=== PATIENT | male | born 2000 | race Caucasian/White ===

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

== ENCOUNTER 2018-10-05 20:25 | Emergency (ER) | payer OTHER ==
[~2018-10-05] VITALS: Ht 188 cm; Wt 136.0 kg
[~2018-10-05 20:25] MED LIST: ALBU8.5H8 INH; AMOX500C2 PO; AZIT250T PO; IBUP-1542 PO; IBUP-1561 PO; INHA-3 MC; OFLO5DRO7 RIGHT EAR
[2018-10-05 21:15] VITALS: Ht 188 cm; Wt 136.0 kg
[2018-10-06] MEDS ORDERED: LORAZEPAM 1 MG TAB PO ONE (01:00)
[2018-10-06 01:42] VITALS: BP 132/83; PULSE 88; RESP 17
--- NOTE | 2018-10-06 01:43 | ERD ---
ER Documentation Chief Complaint Chief Complaint anxiety w/ CP/numbness to left arm since 3PM HPI This is a 18-year-old male with a history of anxiety presents ED with complaints of anxiety attack. Patient states that as he was sitting at home earlier today he started to experience left-sided chest pain and some tingling in the fingertips. 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 Patient has had trouble finding a job. Patient states that the chest pain episode lasted for short period of time, roughly 20 minutes -and he has been feeling anxious off and on ever since. Patient states that he was able to calm himself down and the chest pain subsided. Patient denies any shortness breath, trouble breathing, cough, congestion, runny nose, fever, chills and other symptoms. No pleuritic chest pain. Patient denies PE risk factors inc luding recent surgery/immobilization, smoking, prior hx of DVT, coagulopathy, hx of cancer, exogenous estrogen use, one sided lower extremity swelling, and lower extremity pain. Patient denies cardiac risk factors including: hypertension, diabetes mellitus, hypercholesterolemia, physical inactivity, smoking, hx of CAD, and prior stress/cath. ROS All systems reviewed and are negative except as per history of present illness. Medications Home Meds Active Scripts Ibuprofen* (Motrin*) 400 Mg Tab, 400 MG PO Q8, #20 TAB Prov:DEWAYNE WHITE MD 08/10/18 Inhaler, Assist Devices (Compact Space Chamber) 1 Each Spacer, EACH MC Q4H WHILE AWAKE PRN for COUGH, #1 Prov:DEWAYNE WHITE MD 08/10/18 Albuterol Sulfate* (Proair HFA*) 8.5 Gm Hfa.aer.ad, 2 PUFF INH Q4H PRN for WHEEZING AND SOB, #1 INHALER Prov:DEWAYNE WHITE MD 08/10/18 Azithromycin* (Zithromax*) 250 Mg Tablet, 250 MG PO .ZPACK DIRECTED, #6 TAB TAKE 500 MG (2 TABS) THE FIRST DAY THEN 250 MG (1 TAB) DAYS 2-5 Prov:DEWAYNE WHITE MD 08/10/18 Amoxicillin* (Amoxicillin*) 500 Mg Cap, 500 MG PO TID for 7 Days, CAP Prov:DEWAYNE WHITE MD 08/10/18 Ibuprofen* (Motrin*) 600 Mg Tab, 600 MG PO Q6, #20 TAB Prov:YOHANA DIEHL MD 12/19/17 Ofloxacin Otic (Ofloxacin Otic) 5 Ml Drops, 5 DROP RIGHT EAR BID for 7 Days, #1 BOTTLE Prov:YOHANA DIEHL MD 12/19/17 Allergies Allergies: Coded Allergies: No Known Allergy (Verified , 12/19/17) PMhx/Soc History of Surgery: No Anesthesia Reaction: No Hx Neurological Disorder: No Hx Respiratory Disorders: Yes (BRONCHITIS) Hx Cardiac Disorders: No Hx Psychiatric Problems: No Hx Miscellaneous Medical Probl: Yes (ANXIETY) Hx Alcohol Use: No Hx Substance Use: No Hx Tobacco Use: No Smoking Status: Never smoker Physical Exam Vitals Vital Signs Date Temp Pulse Resp B/P (MAP) Pulse Ox O2 O2 Flow FiO2 Time Delivery Rate 10/06/18 98.0 88 17 132/83 99 Room Air 01:42 (99) 10/05/18 98.3 93 20 147/78 99 21:15 (101) Physical Exam Physical Exam Vitals signs: Reviewed by me. General: Well developed, well nourished, in no acute distress. Patient is awake and alert. Head: Normocephalic, atraumatic. Eyes: Normal conjunctiva, Pupils PERRLA, EOM intact grossly ENT: Pharynx is clear, Moist mucous membranes, external ears, nose and mouth n ormal Neck: Supple, no masses, lymphadenopathy or JVD Respiratory: Clear to auscultation bilaterally with no wheezing, rhonchi, rales, no distress Cardiovascular: RRR, no murmurs, rubs, or gallops Neurologic: Alert and oriented, moving all extremities, normal speech, no focal weakness, no cerebellar signs. Normal mentation Skin: warm and dry, No rash Psych: Anxious Results 24 hrs Current Medications Medications Dose Sig/Joss Start Time Status Last (Trade) Ordered Route PRN Stop Time Admin Dose Reason Admin Lorazepam 1 mg ONCE ONCE 10/06/18 DC 10/06/18 (Ativan) PO 01:00 10/06/18 00:57 01:01 Procedures/MDM EKG read by evin: Rate/Rhythm: Regular rate and rhythm at a rate of 85 Intervals: Normal Impression: No evidence of ischemia or arrhythmia ER COURSE: The patient was given Ativan The medication was well tolerated and the patient reports improvement in symptoms. The patient was stable throughout ED course. I kept the patient and/or family informed of laboratory and diagnostic imaging results throughout the emergency room course. The patient was promptly evaluated and a treatment plan was devised based on H&P and other data. This plan was discussed with the patient who agreed and had no further questions or concerns prior to discharge. MEDICAL DECISION MAKING: This is a 18-year-old male presents ED with anxiety attack that occurred earlier today. The differential diagnosis considered included but was not limited to anxiety, ACS, ID, PE, pneumonia, pneumothorax, among others. Patient is afebrile, non-tachycardic and nontachypneic non-hypoxic. Patient appears anxious but physical examination was otherwise normal.This is likely an anxiety reaction given patient's symptoms and physical examination and history. Patient was given Ativan in the emergency department and reports resolution of symptoms. No evidence of ACS, ID, aortic dissection, PE, pneumonia, pneumothorax, tension pneumothorax, pleural effusion, and other cardiopulmonary emergencies. vitals are stable and he can be managed close outpatient follow-up. Advised patient follow up with primary care clinics 40 hours. Advised patient to engage in more stress reducing techniques such as working out, yoga, meditation and going and walks. Advised patient to follow-up with psychiatry as well. Return to ED with any worsening symptoms DISPOSITION PLAN: We discussed follow up with the patient's primary care doctor within 24 to 48 hours. Patient counseled regarding my diagnostic impression and care plan. Prior to discharge all questions answered. Pt agrees with treatment plan and understands strict return precautions. Precautionary instructions provided including instructions to return to the ER if not improving or for any worsening or changing symptoms or concerns. SPECIALIST FOLLOW UP RECOMMENDED: Psychiatry Patient has been advised to follow up with primary care in 1-2 days. Disclaimer: Inadvertent spelling and grammatical errors are likely due to EHR/dictation software use and do not reflect on the overall quality of patient care. Also, please note that the electronic time recorded on this note does not necessarily reflect the actual time of the patient encounter. Blood Pressure Assessment: Patient's blood pressure was elevated (>120/80) but appears stable without evidence of hypertension emergency or urgency. The patient was counseled about the risks of hypertension and urged to pursue outpatient monitoring and therapy within a week with their primary care physic ian. Rivas Diagnosis: Primary Impression: Anxiety Condition: Stable Patient Instructions: Your Body's Response to Anxiety, Anxiety Reaction Referrals: BUDDY LAMA MARINA MD MOSTAFAVI,BRENDEN CAM,JOLIE ROSAS,[facility] YOU HAVE RECEIVED A MEDICAL SCREENING EXAM AND THE RESULTS INDICATE THAT YOU DO NOT HAVE A CONDITION THAT REQUIRES URGENT TREATMENT IN THE EMERGENCY DEPARTMENT. FURTHER EVALUATION AND TREATMENT OF YOUR CONDITION CAN WAIT UNTIL YOU ARE SEEN IN YOUR DOCTORS OFFICE WITHIN THE NEXT 1-2 DAYS. IT IS YOUR RESPONSIBILITY TO MAKE AN APPOINTMENT FOR FOLOW-UP CARE. IF YOU HAVE A PRIMARY DOCTOR --you should call your primary doctor and schedule an appointment IF YOU DO NOT HAVE A PRIMARY DOCTOR YOU CAN CALL OUR PHYSICIAN REFERRAL HOTLINE AT IF YOU CAN NOT AFFORD TO SEE A PHYSICIAN YOU CAN CHOSE FROM THE FOLLOWING [facility] [address] [facility] [facility] [address] [facility] [facility] [address] [facility] [facility] [address] [facility] [facility] [facility] [address] [facility] [facility]. [address] Additional Instructions: Patient advised to return to the ED immediately for new or worsening symptoms. Patient advised to follow up with primary care provider in the next 24-48 hours. Patient verbalized understanding and agrees with treatment plan and course of action. If patient has no primary care they may follow up with one of the [facility] clinics listed on the following page or one of the options listed below [facility] + [facility] [address] [place] [address] or [facility] [address] [place] [address] [address] [facility] [address] [place] [address] MIHAELA ALMANZA PA-C Oct 06, 2018 01:42
== END 2018-10-06 01:42 | disposition home or self-care (01) ==
LOC: FTE 20:25
DX: F41.9 Anxiety disorder, unspecified (principal)
CPT/HCPCS: 93005; Z7502; Z7610